=== PATIENT | female | born 1995 | race African-American/Black ===

== ENCOUNTER 2017-04-07 16:51 | Emergency (ER) | payer OTHER ==
[2017-04-07 17:03] VITALS: BP 107/55; PULSE 88; TEMP 97.8; BMI 26.2
--- NOTE | 2017-04-07 17:24 | PDOC ---
History of Present Illness - General Chief Complaint: Sore Throat Stated Complaint: SORE THROAT Time Seen by Provider: 04/07/17 17:12 History Source: Patient Exam Limitations: No Limitations - History of Present Illness Initial Comments: 04/07/17 17:19 21-year-old female presents the emergency room with 2 days of sore throat and dry cough without fever, chills, difficult swallowing, neck stiffness, headache recent travel or recent illness. Patient does smoke marijuana daily basis and denies history of asthma. Timing/Duration: other Severity: mild Associated Symptoms: reports: cough, other Past History - Travel Traveled outside of the country in the last 30 days: Yes - Past Medical History Allergies/Adverse Reactions: Allergies Allergy/AdvReac Type Severity Reaction Status Date / Time No Known Allergies Allergy Verified 04/07/17 17:02 Home Medications: Ambulatory Orders NK [No Known Home Medication] 04/07/17 Anemia: No Asthma: No Cancer: No Cardiac Disorders: No CVA: No COPD: No DVT: No Dementia: No Diabetes: No Dialysis: No GI Disorders: No Disorders: No HTN: No Hypercholesterolemia: No Kidney Stones: No Liver Disease: No Psychiatric Problems: No Seizures: No Thyroid Disease: No Lung CA: No - Surgical History Abdominal Surgery: No Appendectomy: No Cardiac Surgery: No Cholecystectomy: No Gastric Stapling: No GI Surgery: No Lung Surgery: No Neurologic Surgery: No - Immunization History Immunization Up to Date: No - Suicide/Smoking/Psychosocial Hx Smoking History: Never smoked Have you smoked in the past 12 months: No Information on smoking cessation initiated: No Hx Alcohol Use: No Drug/Substance Use Hx: Yes (marijuana) Substance Use Type: Marijuana Patient Lives Alone: No Lives with/in: parents Review of Systems - Review of Systems Able to Perform ROS?: Yes Constitutional: No: Symptoms Reported HEENTM: Yes: Throat Pain Respiratory: Yes: Cough ABD/GI: No: Symptoms Reported Musculoskeletal: No: Symptoms Reported Integumentary: No: Symptoms Reported Neurological: No: Symptoms reported *Physical Exam - Vital Signs Last Vital Signs Temp Pulse Resp BP Pulse Ox 97.8 F 88 19 107/55 100 04/07/17 17:00 04/07/17 17:00 04/07/17 17:00 04/07/17 17:00 04/07/17 17:00 - Physical Exam General Appearance: Yes: Nourished, Appropriately Dressed. No: Apparent Distress HEENT: positive: EOMI, LAKISHA, TMs Normal, Pharynx Normal. negative: Pale Conjunctivae Neck: positive: Supple Respiratory/Chest: positive: Lungs Clear, Normal Breath Sounds. negative: Respiratory Distress, Accessory Muscle Use Cardiovascular: positive: Regular Rhythm, Regular Rate. negative: Murmur Gastrointestinal/Abdominal: positive: Soft. negative: Tenderness Integumentary: positive: Normal Color, Warm, Moist Neurologic: positive: Motor Strength 5/5 (ambulatory) Medical Decision Making - Medical Decision Making 04/07/17 17:28 Patient was subjective sore throat and cough. Patient had no acute findings on exam. Patient with likely viral etiology. Patient recommended to use warm salt water with gargling and Chloraseptic [place]. Patient also recommended take Motrin for discomfort. *DC/Admit/Observation/Transfer Diagnosis at time of Disposition: Sore throat - Discharge Dispostion Disposition: HOME Condition at time of disposition: Good - Referrals - Patient Instructions Printed Discharge Instructions: Sore Throat Additional Instructions: Please you Chloraseptic [place] as recommended along with Motrin for discomfort. Gargle with warm salt water - Post Discharge Activity
== END 2017-04-07 17:31 | disposition home or self-care (01) ==
LOC: JERFT 16:51
DX: J02.9 Acute pharyngitis, unspecified (principal)
CPT/HCPCS: 99281-25

== ENCOUNTER 2017-05-17 20:31 | Emergency (ER) | payer OTHER ==
--- NOTE | 2017-05-17 21:01 | PDOC ---
Rapid Medical Evaluation Chief Complaint: Pain, Acute Time Seen by Provider: 05/17/17 20:57 Medical Evaluation: Allergies Allergy/AdvReac Type Severity Reaction Status Date / Time No Known Allergies Allergy Verified 04/07/17 17:02 05/17/17 20:57 21 year old female with complicated story about a belly button ring infection that "spread to the stomach", on several antibiotics since summer? Presents with generalized abdominal pain, diarrhea, and "red stool" which she attributes to eating pork two days ago. No fevers/chills. No nausea/vomiting. V/s unremarkable. Basic labs To Main ED for further evaluation
[2017-05-17 21:03] VITALS: BMI 24.7
[2017-05-17 21:24] LABS: BASO % 1.3 % (0-2.0); EOS % 5.1 % (0-4.5); HEMATOCRIT 35.2 % (32.4-45.2); HEMOGLOBIN 11.3 GM/dL (10.7-15.3); MCHC 32.2 g/dl (32.0-36.0); MEAN CELL VOLUME 83.9 fl (80-96); MEAN PLT VOLUME 9.6 fl (7.5-11.1); MONO % 8.9 % (3.8-10.2); NEUT % 54.7 % (42.8-82.8); PLATELET COUNT 326 K/MM3 (134-434); RDW 16.1 % (11.6-15.6); WHITE BLOOD COUNT 5.1 K/mm3 (4.0-10.0)
[2017-05-17 22:05] LABS: ALBUMIN 3.7 g/dl (3.4-5.0); ANION GAP 5 (8-16); BLOOD UREA NITROGEN 13 mg/dL (7-18); CALCIUM 9.1 mg/dL (8.5-10.1); CHLORIDE 105 mmol/L (98-107); CO2 29 mmol/L (21-32); CREATININE 0.9 mg/dL (0.55-1.02); GLUCOSE,RANDOM 83 mg/dL (74-106); POTASSIUM 4.3 mmol/L (3.5-5.1); SGOT/AST 18 U/L (15-37); SGPT/ALT 23 U/L (12-78); SODIUM 139 mmol/L (136-145)
[2017-05-17 22:06] LABS: ALK PHOS 74 U/L (45-117); BILIRUBIN,TOTAL 0.3 mg/dL (0.2-1.0); TOT PROT 7.6 g/dl (6.4-8.2)
[2017-05-17 22:07] LABS: LIPASE 282 U/L (73-393)
[2017-05-17] MEDS ORDERED: SODIUM CHLORIDE 1,000 ML IV STA (22:29)
[2017-05-17] MEDS ORDERED: ONDANSETRON 4 MG/2 ML VIAL IVPUSH ONE (22:29)
[2017-05-17] MEDS ORDERED: FAMOTIDINE IV 20 MG/12 ML VIAL IVPB ONE (22:29)
--- NOTE | 2017-05-17 22:29 | PDOC ---
History of Present Illness - General Chief Complaint: Pain, Acute Stated Complaint: PAIN Time Seen by Provider: 05/17/17 20:57 History Source: Patient Exam Limitations: No Limitations - History of Present Illness Initial Comments: 05/17/17 21:52 Patient is a 21-year-old female with no past medical history who presents to the emergency department today complaining of diffuse abdominal pain for 2 days. Patient states that she recently ate some pork. Patient states that she gave up pork approximate 6 months ago and has not used eating it anymore. She believes this is the cause of her pain, however she is concerned that there could be something worse. No recent antibiotic use. Denies nausea and vomiting. Denies constipation and diarrhea. Patient states that her stool has been red in color and is concerned for bleeding. Denies fevers, chills, shortness of breath , chest pain, palpitations, frequency, urgency and hematuria. Last menstrual cycle ended on 05/16/2017. Past History - Travel Traveled outside of the country in the last 30 days: No Close contact w/someone who was outside of country & ill: No - Past Medical History Allergies/Adverse Reactions: Allergies Allergy/AdvReac Type Severity Reaction Status Date / Time No Known Allergies Allergy Verified 05/17/17 21:03 Home Medications: Ambulatory Orders Ibuprofen [Motrin -] 600 mg PO TID PRN #21 tablet 04/07/17 Phenol/Glycerin [Chloraseptic Max [place]] 1 - 2 spray MM QID PRN #1 spray Cephalexin Monohydrate [Keflex -] 500 mg PO BID #14 capsule 05/17/17 Anemia: No Asthma: No Cancer: No Cardiac Disorders: No CVA: No COPD: No DVT: No Dementia: No Diabetes: No Dialysis: No GI Disorders: No Disorders: No HTN: No Hypercholesterolemia: No Kidney Stones: No Liver Disease: No Psychiatric Problems: No Seizures: No Thyroid Disease: No Lung CA: No - Surgical History Abdominal Surgery: No Appendectomy: No Cardiac Surgery: No Cholecystectomy: No Gastric Stapling: No GI Surgery: No Lung Surgery: No Neurologic Surgery: No - Immunization History Immunization Up to Date: No - Suicide/Smoking/Psychosocial Hx Smoking History: Never smoked Have you smoked in the past 12 months: No Information on smoking cessation initiated: No Hx Alcohol Use: No Drug/Substance Use Hx: Yes Substance Use Type: None, Marijuana Review of Systems - Review of Systems Able to Perform ROS?: Yes Comments:: 05/17/17 20:54 CONSTITUTIONAL: Absent: fever, chills, diaphoresis, generalized weakness, malaise, loss of appetite HEENT: Absent: rhinorrhea, nasal congestion, throat pain, throat swelling, difficulty swallowing, mouth swelling, ear pain, eye pain, visual Changes CARDIOVASCULAR: Absent: chest pain, loss of consciousness, palpitations, irregular heart rate, peripheral edema RESPIRATORY: Absent: cough, shortness of breath, dyspnea with exertion, orthopnea, wheezing, stridor, hemoptysis GASTROINTESTINAL: Present: abdominal pain Absent: abdominal distension, nausea, vomiting, diarrhea , constipation, melena, hematochezia GENITOURINARY: Absent: dysuria, frequency, urgency, hesitancy, hematuria, flank pain, genital pain MUSCULOSKELETAL: Absent: myalgia, arthralgia, joint swelling SKIN: Absent: rash, itching, pallor NEUROLOGIC: Absent: headache, focal weakness or paresthesias, dizziness, unsteady gait, seizure, mental status changes, bladder or bowel incontinence PSYCHIATRIC: Absent: anxiety, depression, suicidal or homicidal ideation, hallucinations. Is the patient limited Albanian proficient: No *Physical Exam - Vital Signs Last Vital Signs Temp Pulse Resp BP Pulse Ox 98.3 F 71 18 122/50 100 05/17/17 20:57 05/17/17 20:57 05/17/17 20:57 05/17/17 20:57 05/17/17 20:57 - Physical Exam Comments: 05/17/17 23:02 GENERAL: Well developed, well nourished. Awake and alert. No acute distress. HEENT: Normocephalic, atraumatic. PERRLA, EOMI. No conjunctival pallor. Sclera are non- icteric. Moist mucous membranes. Oropharynx is clear. NECK: Supple. Full ROM. No JVD. Carotid pulses 2+ and symmetric, without bruits. No thyromegaly. No lymphadenopathy. CARDIOVASCULAR: Regular rate and rhythm. No murmurs, rubs, or gallops. Distal pulses are 2+ and symmetric. PULMONARY: No evidence of respiratory distress. Lungs clear to auscultation bilaterally. No wheezing, rales or rhonchi. ABDOMINAL: Diffuse tenderness to palpation, slightly worse over the RLQ. Negative rovsing, obturator sign. Soft. Non-distended. No rebound or guarding. No organomegaly. Normoactive bowel sounds. MUSCULOSKELETAL Normal range of motion at all joints. No bony deformities or tenderness. No CVA tenderness. EXTREMITIES: No cyanosis. No clubbing. No edema. No calf tenderness. SKIN: Warm and dry. Normal capillary refill. No rashes. No jaundice. NEUROLOGICAL: Alert, awake, appropriate. Cranial nerves 2-12 intact. No deficits to light touch and temperature in face, upper extremities and lower extremities. No motor deficits in the in face, upper extremities and lower extremities. Normoreflexic in the upper and lower extremities. Normal speech. Toes are down- going bilaterally. Gait is normal without ataxia. PSYCHIATRIC: Cooperative. Good eye contact. Appropriate mood and affect. ED Treatment Course - LABORATORY CBC & Chemistry Diagram: 05/17/17 21:08 05/17/17 21:08 - ADDITIONAL ORDERS Additional order review: Laboratory Results 05/17/17 21:08 Sodium 139 Potassium 4.3 Chloride 105 Carbon Dioxide 29 Anion Gap 5 L BUN 13 Creatinine 0.9 Creat Clearance w eGFR > 60 Random Glucose 83 Calcium 9.1 Total Bilirubin 0.3 AST 18 ALT 23 Alkaline Phosphatase 74 Total Protein 7.6 Albumin 3.7 Lipase 282 05/17/17 21:08 RBC 4.20 MCV 83.9 MCHC 32.2 RDW 16.1 H MPV 9.6 Neutrophils % 54.7 Lymphocytes % 30.0 Monocytes % 8.9 Eosinophils % 5.1 H Basophils % 1.3 Medical Decision Making - Medical Decision Making 05/17/17 21:55 Patient is a 21-year-old female no past medical history who presents with 2 days of abdominal pain. We will draw basic labs. However I suspect that her pain is due to the pork she recently ate. We'll also obtain a urine sample and stool for occult blood given her recent red stools. Low suspicion for appendicitis at this time as Rovsing's, obturator and psoas signs are negative. Will reevaluate. 05/17/17 22:38 Lab work is unremarkable at this time. No leukocytosis lipase is within normal limits. Urine shows trace leukocytes with white blood cell we'll treat for UTI at this time. Repeat abdominal exam less tender after ibuprofen. Strict return precautions given for appendicitis. Patient understands all discharge instructions and all questions were answered at this time. *DC/Admit/Observation/Transfer Diagnosis at time of Disposition: UTI (urinary tract infection) Qualifiers: Urinary tract infection type: acute cystitis Hematuria presence: with hematuria Qualified Code(s): N30.01 - Acute cystitis with hematuria Abdominal pain Qualifiers: Abdominal location: generalized Qualified Code(s): R10.84 - Generalized abdominal pain - Discharge Dispostion Disposition: HOME Condition at time of disposition: Stable Admit: No - Prescriptions Prescriptions: Cephalexin Monohydrate [Keflex -] 500 mg PO BID #14 capsule - Referrals Referrals: Valentín Stephenson [Primary Care Provider] - - Patient Instructions Printed Discharge Instructions: DI for Urinary Tract Infection (UTI) Additional Instructions: You have a urinary tract infection. Please take Keflex 500 mg twice a day to treat the infection. Please drink plenty of fluids including cranberry juice. You may take ibuprofen as needed for pain 800 mg 3 times a day. Please follow- up with your primary care doctor this week. Return to the emergency department if you have worsening abdominal pain, nausea , vomiting, weakness, or any changes in your symptoms. - Post Discharge Activity Forms/Work/School Notes: Back to Work
[2017-05-17 22:38] LABS: HCG,QUALITATIVE URINE NEGATIVE
[2017-05-17 22:42] LABS: URINE APPEARANCE CLOUDY; URINE BILIRUBIN NEGATIVE (NEGATIVE); URINE BLOOD NEGATIVE (NEGATIVE); URINE COLOR YELLOW; URINE GLUCOSE (UA) NEGATIVE (NEGATIVE); URINE KETONE NEGATIVE (NEGATIVE); URINE LEUK ESTERASE TRACE (NEGATIVE); URINE NITRITE NEGATIVE (NEGATIVE); URINE PROTEIN NEGATIVE (NEGATIVE); URINE UROBILINOGEN NEGATIVE mg/dL (0.2-1.0)
[2017-05-17] MEDS ORDERED: FAMOTIDINE 20 MG/50 ML IVPB 20 MG/50 ML MG IVPB ONE (22:42)
[2017-05-17] MEDS ORDERED: ONDANSETRON 4 MG/2 ML VIAL ONE (22:42)
[2017-05-17 22:43] LABS: EPI CELLS FEW /HPF (FEW); URINE BACTERIA RARE /hpf (NONE SEEN); URINE HYALINE CAST 2 /lpf; URINE MUCUS RARE; YEAST FEW
[2017-05-17] MEDS ORDERED: ONDANSETRON *ODT* 4 MG TABLET SL ONE (22:48)
[2017-05-17] MEDS ORDERED: RANITIDINE HCL 150 MG TABLET (FP) PO ONE (22:48)
[2017-05-17] MEDS ORDERED: ONDANSETRON *ODT* 4 MG TABLET ONE (22:52)
[2017-05-17] MEDS ORDERED: RANITIDINE HCL 150 MG TABLET (FP) ONE (22:52)
[2017-05-17] MEDS ORDERED: CEPHALEXIN MONOHYDRATE 500 MG CAPSULE (UD) PO ONE (23:04)
[2017-05-17] MEDS ORDERED: CEPHALEXIN MONOHYDRATE 250 MG CAPSULE (FP) ONE (23:25)
[2017-05-17 23:31] VITALS: BP 128/58; PULSE 68; TEMP 98.1
== END 2017-05-17 23:29 | disposition home or self-care (01) ==
LOC: JER 20:31
DX: N30.01 Acute cystitis with hematuria (principal)
CPT/HCPCS: 36415; 80053; 81003; 81015; 82272; 83690; 84703; 85025; 99282-25

== ENCOUNTER 2017-08-12 18:19 | Emergency (ER) | payer OTHER | END 2017-08-13 00:47 | disposition home or self-care (01) | LOC: JER 18:19 | PROC: 3E033NZ Introduction of Analgesics, Hypnotics, Sedatives into Peripheral Vein, Percutaneous Approach (ICD-10-PCS; principal; 2017-08-12) | PROC: 3E033GC Introduction of Other Therapeutic Substance into Peripheral Vein, Percutaneous Approach (ICD-10-PCS; 2017-08-12) | CPT/HCPCS: 36415; 76705-TC; 80053; 81003; 81015; 84702; 85025; 85610; 93005; 93010; 96374; 96375; 99282-25 ==

== ENCOUNTER 2018-06-10 15:22 | Emergency (ER) | payer OTHER ==
[2018-06-10 15:49] VITALS: BP 110/62; PULSE 79; TEMP 98.4; BMI 24.0
--- NOTE | 2018-06-10 15:51 | PDOC ---
Rapid Medical Evaluation Chief Complaint: Syncope/Near Syncope Time Seen by Provider: 06/10/18 15:46 Medical Evaluation: Allergies Allergy/AdvReac Type Severity Reaction Status Date / Time No Known Allergies Allergy Verified 08/12/17 18:35 06/10/18 15:49 have performed a brief in-person evaluation of this patient. The patient presents with a chief complaint of: syncope today and yesterday. States while getting dress passed out on the floor unwitness. Denies dizziness, or head strike Pertinent physical exam findings: NAD PERRLA even and unlabored breathing I have ordered the following: ekg, fingerstick, urine preg The patient will proceed to the ED for further evaluation. Discharge Disposition - Diagnosis Syncope - Discharge Dispostion Condition at time of disposition: Stable - Referrals - Patient Instructions - Post Discharge Activity
--- NOTE | 2018-06-10 18:20 | PDOC ---
History of Present Illness - General Chief Complaint: Syncope/Near Syncope Stated Complaint: FAINTING Time Seen by Provider: 06/10/18 15:46 History Source: Patient Exam Limitations: No Limitations - History of Present Illness Initial Comments: 06/10/18 18:15 22 yr old woman with significant past medical history presents s/p 2 unwitnessed syncopal episodes yesterday and today. Yesterday she was walking around doing her hair at the mirror for 10mins when she felt dizzy, she sat on the toilet and then stood up to go to the bedroom, she felt lightheaded and felt her self go down to the floor and woke up laying on her right side without any acute trauma. she is unsure of how long she may have been unconscious, likely few minutes. she got up slowly and walked to her bed and stayed mostly there for the rest of the day. She had another episode while pulling up her pants this morning in a standing position, she felt lightheaded and passed out again reaching the ground without head trauma. a/w nausea and headache and intermittent abdominal pain. has been having intermitting chills for past few months, noticed them several times this morning. denies fevers, chest pain, palpitations, vomiting, diarrhea, vaginal bleeding says she has intermittent lower abd pain in the past without any acute pathology. she had one previous episode of syncope in the past last year, but she didn't seek medical evaluation at that time. works as a seasonal retail merchandiser. has not received her flu vaccine, does not want it now. Sochx: smoked weed 2-3x/wk, last use sunday morning, denies tobacco, IVDU. has been with the same male partner for past 4yrs, has unprotected sex without any contraceptive use surghx: denies Fmhx: father with DM, denies early cardiac deaths, HTN, strokes, cancers PCP: dr. Stephenson Past History - Past Medical History Allergies/Adverse Reactions: Allergies Allergy/AdvReac Type Severity Reaction Status Date / Time No Known Allergies Allergy Verified 08/12/17 18:35 Home Medications: Ambulatory Orders NK [No Known Home Medication] 08/12/17 Anemia: No Asthma: No Cancer: No Cardiac Disorders: No CVA: No COPD: No DVT: No Dementia: No Diabetes: No Dialysis: No GI Disorders: No Disorders: No HTN: No Hypercholesterolemia: No Kidney Stones: No Liver Disease: No Psychiatric Problems: No Seizures: No Thyroid Disease: No Lung CA: No - Surgical History Abdominal Surgery: No Appendectomy: No Cardiac Surgery: No Cholecystectomy: No Gastric Stapling: No GI Surgery: No Lung Surgery: No Neurologic Surgery: No - Immunization History Immunization Up to Date: No - Suicide/Smoking/Psychosocial Hx Smoking History: Never smoked Have you smoked in the past 12 months: No Information on smoking cessation initiated: No Hx Alcohol Use: No Drug/Substance Use Hx: No Substance Use Type: Marijuana Review of Systems - Review of Systems Able to Perform ROS?: Yes Constitutional: Yes: Chills, Weight Stable. No: Fever, Loss of Appetite, Night Sweats, Weakness, Unintentional Wgt. Loss HEENTM: Yes: Blurred Vision (wears glasses, has been seen by optho in the past, "it's normal" as per pt). No: Eye Pain, Double Vision, Nose Pain, Nose Bleeding , Hearing Loss, Throat Swelling, Mouth Pain, Difficulty Swallowing, Mouth Swelling Respiratory: No: Shortness of Breath, SOB at Rest, Productive cough, Hemoptysis Cardiac (ROS): Yes: Lightheadedness, Syncope. No: Chest Pain, Irregular Heart Rate, Palpitations, Chest Tightness ABD/GI: Yes: Nausea, Abdominal cramping. No: Abdominal Distended, Constipated, Diarrhea, Difficulty Swallowing, Poor Appetite, Poor Fluid Intake, Rectal Bleeding, Vomiting, Indigestion : No: Burning, Dysuria, Discharge, Frequency, Flank Pain, Hematuria, Urgency Musculoskeletal: No: Back Pain, Muscle Pain, Muscle Weakness, Neck Pain, Joint Stiffness Integumentary: No: Bruising, Flushing, Rash Neurological: Yes: Headache. No: Numbness, Paresthesia, Seizure, Tingling, Tremors, Unsteady Gait Hematologic/Lymphatic: No: Anemia *Physical Exam - Vital Signs Last Vital Signs Temp Pulse Resp BP Pulse Ox 98.4 F 79 18 110/62 100 06/10/18 15:46 06/10/18 15:46 06/10/18 15:46 06/10/18 15:46 06/10/18 15:46 - Physical Exam General Appearance: Yes: Appropriately Dressed HEENT: positive: EOMI, LAKISHA, Pharynx Normal. negative: Tonsillar Exudate, Tonsillar Erythema, Nasal Congestion, Rhinorrhea, Sinus Tenderness Neck: positive: Trachea midline, Normal Thyroid, Supple Respiratory/Chest: positive: Lungs Clear, Normal Breath Sounds. negative: Crackles, Rhonchi, Wheezing Cardiovascular: positive: Regular Rhythm, Regular Rate. negative: Murmur Gastrointestinal/Abdominal: positive: Normal Bowel Sounds, Flat, Soft. negative : Distended, Guarding Musculoskeletal: negative: CVA Tenderness Integumentary: positive: Dry, Warm Neurologic: positive: Fully Oriented, Alert, Motor Strength 5/5 Moderate Sedation - Procedure Monitoring Vital Signs: Procedure Monitoring Vital Signs Temperature 98.4 F 06/10/18 15:46 Pulse Rate 79 06/10/18 15:46 Respiratory Rate 18 06/10/18 15:46 Blood Pressure 110/62 06/10/18 15:46 O2 Sat by Pulse Oximetry (%) 100 06/10/18 15:46 Medical Decision Making - Medical Decision Making 06/10/18 18:28 22 yr old woman with no pmhx present with 2 days of syncopal episodes after walking around her room this morning. 06/10/18 19:33 upreg is negative. ekg is NSR on my read with nonspecific t-wave abnormality. no arrhythmia or cardiac block on this ekg to account for syncope. check basic labs, tsh and cardiac profile to r/o any lab abnormalities such as anemia, leucocytosis to indicate infection, electrolyte abnormality, FRANCK, liver dysfunction, thyroid dysfunction or elevated trop to explain her symptoms. 06/10/18 20:45 reviewed upreg and ekg with patient and recommended to stay for further labs, pt declined further evaluation with lab work and any indicated procedures and follow-up resulting from lab work. She wanted to go home and stated understanding of the risks of leaving against medical advice including recurrent syncope, SC, any electrolyte or abnormality that would have otherwise been seen on indicated lab work. pt was given work note for 06/10/2018 and copy of her EKG to f/u with Dr. Stephenson. pt said she would call 's office this week for follow-up. instructions given to return to ED if new or worsening symptoms. pt signed AMA form and left the ED. *DC/Admit/Observation/Transfer Diagnosis at time of Disposition: Syncope - Discharge Dispostion Condition at time of disposition: Stable - Referrals Referrals: Valentín Stephenson [Primary Care Provider] - - Patient Instructions - Post Discharge Activity
--- NOTE | 2018-06-10 20:21 | PDOC ---
Attending Attestation - Physicial Exam PE: 06/10/18 20:31 GENERAL: Well-appearing, well-nourished. No apparent distress. HEENT: Normocephalic, atraumatic. PERRL, EOM intact. CARDIOVASCULAR: Normal S1, S2. Regular rate and rhythm. PULMONARY: Clear to auscultation bilaterally. ABDOMEN: Soft, non-distended, non-tender. EXTREMITIES: Normal ROM in all four extremities. No gross deformities. SKIN: Warm, dry. No rash NEUROLOGICAL: No focal neurological deficits. <Heather Landers - Last Filed: 06/10/18 20:31> - Resident Resident Name: Vega Rodriguez - ED Attending Attestation I have performed the following: I have examined & evaluated the patient, The case was reviewed & discussed with the resident, I agree w/resident's findings & plan, Exceptions are as noted - HPI HPI: 06/10/18 20:18 this 22 yo female has experienced two episodes of fainting over past 2 days , she is comfortable now , no chest pain ,no shortness of breath HPI she had a similar episode last year and Dr Sharri Nolan evaluated her for this - Medical Decision Making 06/12/18 03:09 pt did not want to stay for cardiac enzymes and left AMA <Leta Capellan - Last Filed: 06/12/18 03:09> Attestations - Attestations 06/10/18 20:31 Documentation prepared by Heather Landers, acting as biomedical repair technician for Leta Capellan MD. <Heather Landers - Last Filed: 06/10/18 20:31>
--- NOTE | 2018-06-11 10:52 | EKG ---
Test Reason : Blood Pressure : / mmHG Vent. Rate : 069 BPM Atrial Rate : 069 BPM P-R Int : 148 ms QRS Dur : 094 ms QT Int : 366 ms P-R-T Axes : 072 075 062 degrees QTc Int : 392 ms NORMAL SINUS RHYTHM NONSPECIFIC T WAVE ABNORMALITY ABNORMAL ECG WHEN COMPARED WITH ECG OF 12-AUG-2017 20:37, NO SIGNIFICANT CHANGE WAS FOUND Confirmed by Alfonzo Sanz MD ([id number]) on 06/11/2018 10:51:59 AM Referred By: Confirmed By:Alfonzo Sanz MD
== END 2018-06-10 21:11 | disposition left against medical advice (07) ==
LOC: JER 15:22
DX: R55 Syncope and collapse (principal)
CPT/HCPCS: 84703; 93005; 93010; 99281-25

== ENCOUNTER 2021-09-10 16:31 | Emergency (ER) | payer OTHER ==
[2021-09-10 16:47] VITALS: BP 107/66; PULSE 91; TEMP 98.1; BMI 22.3
[2021-09-10] MEDS ORDERED: SODIUM CHLORIDE 0.9% 500 ML INFUS.BAG IV ONE (18:06)
[2021-09-10] MEDS ORDERED: morphine CARPU-JECT 2 MG/1 ML DISP.SYRIN IVPUSH ONE ×2 (18:09→20:58)
[2021-09-10 20:09] LABS: EPI CELLS 12 /uL (0-25.1); HYALINE CASTS 3 /uL (0-3.1); URINE APPEARANCE CLOUDY; URINE BACTERIA 162 /uL (0-1359); URINE BILIRUBIN 1+ (NEGATIVE); URINE COLOR ORANGE; URINE GLUCOSE (UA) NEGATIVE (NEGATIVE); URINE KETONE TRACE (NEGATIVE); URINE LEUK ESTERASE 2+ (NEGATIVE); URINE NITRITE NEGATIVE (NEGATIVE); URINE PROTEIN 3+ (NEGATIVE); URINE RBC 4689 /uL (0-23.9); URINE WBC 304 /uL (0-25.8)
[2021-09-10 20:12] LABS: BASO % 0.4 % (0-2.0); EOS % 0.8 % (0-4.5); HEMATOCRIT 27.4 % (32.4-45.2); HEMOGLOBIN 8.6 GM/dL (10.7-15.3); LYMPH % 12.4 % (8-40); MCH 22.1 pg (25.7-33.7); MCHC 31.4 g/dl (32.0-36.0); MEAN CELL VOLUME 70.5 fl (80-96); MEAN PLT VOLUME 8.7 fl (7.5-11.1); MONO % 9.9 % (3.8-10.2); NEUT % 76.5 % (42.8-82.8); PLATELET COUNT 467 10^3/uL (134-434); RBC 3.89 M/mm3 (3.60-5.2); RDW 19.3 % (11.6-15.6); WHITE BLOOD COUNT 12.8 K/mm3 (4.0-10.0)
[2021-09-10 20:33] LABS: CALCIUM 9.2 mg/dL (8.5-10.1)
[2021-09-10 20:34] LABS: ALBUMIN 3.5 g/dl (3.4-5.0)
[2021-09-10 20:37] LABS: CREATININE 0.9 mg/dL (0.55-1.3)
[2021-09-10 20:38] LABS: BILIRUBIN,TOTAL 0.4 mg/dL (0.2-1)
[2021-09-10] MEDS ORDERED: CEFTRIAXONE 1 GM/50 ML BAG ONE (21:32)
== END 2021-09-11 01:21 | disposition home or self-care (01) ==
LOC: JER 16:31
PROC: 3E033NZ Introduction of Analgesics, Hypnotics, Sedatives into Peripheral Vein, Percutaneous Approach (ICD-10-PCS; principal; 2021-09-10)
PROC: 3E033GC Introduction of Other Therapeutic Substance into Peripheral Vein, Percutaneous Approach (ICD-10-PCS; 2021-09-10)
PROC: 3E03329 Introduction of Other Anti-infective into Peripheral Vein, Percutaneous Approach (ICD-10-PCS; 2021-09-10)
DX: R10.31 Right lower quadrant pain (principal); R55 Syncope and collapse
CPT/HCPCS: 36415; 71046-TC-FY; 74176-TC; 76705-TC; 76830-TC; 80053; 81003; 84484; 84703; 85025; 87086; 93005; 93010; 99285-25; C9803-CS; U0003; U0005

== ENCOUNTER → 2023-04-19 | Day surgery (SDC) | payer OTHER | END | disposition home or self-care (01) | LOC: EDSTATUS 13:00 → FRADUS-SUR 13:14 | PROVIDERS: ATTEND Obstetrics & Gynecology | PROC: BU081ZZ Plain Radiography of Uterus and Fallopian Tubes using Low Osmolar Contrast (ICD-10-PCS; principal; 2023-04-19) | DX: Z31.41 Encounter for fertility testing (principal) | CPT/HCPCS: 58340; 74740-TC-FY; 76000-TC-FY; 84703 ==